=== PATIENT | male | born 1960 | race Caucasian/White ===

== ENCOUNTER 2017-05-09 10:18 | Emergency (ER) | payer OTHER ==
[~2017-05-09] VITALS: Ht 185.4 cm; Wt 144.7 kg
[~2017-05-09 10:18] MED LIST: ANTIVERT25 MG PO; MICARDIS80 MG PO; NEXIUM20 MG PO; NORCO 5/3251 TABLET PO; PREDNISONE10 MG PO
[2017-05-09] MEDS ORDERED: CLARITIN,ALAVAR10 MG PO (13:11)
[2017-05-09 13:32] VITALS: BP 160/80
== END 2017-05-09 13:35 | disposition home or self-care (01) ==
LOC: EME 10:18
DX: H10.13 Acute atopic conjunctivitis, bilateral (principal); I10 Essential (primary) hypertension
CPT/HCPCS: 99281; 99283